=== PATIENT | male | born 1975 | race Caucasian/White ===

== ENCOUNTER 2019-05-01 21:30 | Emergency (ER) | payer BC ==
[~2019-05-01] VITALS: Ht 172.7 cm; Wt 95.5 kg
[~2019-05-01 21:30] MED LIST: HYDR-3730 PO; HYOS0.1283 SL; KETO10TA PO; ONDA4TAB8 PO
[2019-05-01] MEDS ORDERED: ACETAMINOPHEN 500 MG TAB (TYLENOL) PO STA (22:50)
[2019-05-01] MEDS ORDERED: NS IV 1000 ML 1,000 ML IV ONE (22:50)
--- NOTE | 2019-05-01 23:04 | ED Cough/URI ---
General Chief Complaint: Fever-Adult/Adol Stated Complaint: FEVER,BODY ACHES Nursing Triage Note: Pt amb to triage with c/o fever and body aches. Pt reports onset of symptoms approx 3 days ago. Pt reports @ 2019 on this day fever of 103.8. Pt reports to have taken 400mg ibuprofen @ 2030 on this day. Initial pulse rate 123. Sepsis Screen: Possible Severe Sepsis Risk Source: patient Exam Limitations: no limitations (MANNY RUSSELL STUDENT) History of Present Illness Date Seen by Provider: May 01, 2019 Time Seen by Provider: 22:45 Initial Comments Patient presents today with a four day history of fever, headache, body aches and a scratchy throat. He states that nothing makes the symptoms worse or alleviates symptoms. He denies any other symptoms such as cough, chest pain, nausea, vomiting or diarrhea. Patient states that his son may have tonsillitis or strep throat. Timing/Duration: other (Symptoms have been present for the last 4 days) Severity/Quality: no cough Prior Episodes/Possible Cause: no prior episodes Modifying Factors: Improves With Other (nothing improves or worsens the symptoms) Associated Symptoms: fever/chills, muscle aches, sore throat (MANNY RUSSELL STUDENT) Initial Comments Here with fevers and body aches as well as a headache. States that he's not drinking as much as he should but that is mostly because he doesn't feel well. Has had moderate fever that seems to be responding some to ibuprofen. Did take ibuprofen 2 tablets prior to arrival. Has not had any other medication. Timing/Duration: other (Symptoms have been present for the last 4 days) Severity/Quality: no cough Associated Symptoms: chest pain/soreness, cough, fever/chills, muscle aches, shortness of breath, sore throat (CESAR OH MD) Allergies and Home Medications Allergies Coded Allergies: theophylline (Verified Allergy, Unknown, 06/12/16) Home Medications Hydrocodone/Acetaminophen 1 Each Tablet, 1-2 EACH PO Q4H Prescribed by: TYLER PAYNE on 06/12/16 1252 Hyoscyamine Sulfate 0.125 Mg Tab.subl, 1-2 TAB SL Q4H Prescribed by: ANTHONY GONZALEZ on 06/12/16 0625 Ketorolac Tromethamine 10 Mg Tablet, 10 MG PO Q6H Prescribed by: ANTHONY GONZALEZ on 06/12/16624 Ondansetron 4 Mg Tab.rapdis, 4 MG PO Q4H Prescribed by: ANTHONY GONZALEZ on 06/12/16624 Patient Home Medication List Home Medication List Reviewed: Yes (CESAR OH MD) Review of Systems Review of Systems Constitutional: see HPI EENTM: see HPI Respiratory: no symptoms reported Cardiovascular: no symptoms reported Gastrointestinal: no symptoms reported Genitourinary: no symptoms reported Skin: no symptoms reported Psychiatric/Neurological: No Symptoms Reported Hematologic/Lymphatic: No Symptoms Reported Immunological/Allergic: no symptoms reported (MANNY RUSSELL) Constitutional: fever, malaise EENTM: see HPI Respiratory: no symptoms reported Cardiovascular: no symptoms reported Gastrointestinal: no symptoms reported Genitourinary: no symptoms reported (CESAR OH MD) Past Rilyejf-Jojvvf-Hgknqv Hx Past Med/Social Hx: Reviewed Nursing Past Med/Soc Hx (CESAR OH MD) Patient Social History Alcohol Use: Denies Use Recreational Drug Use: No Smoking Status: Never a Smoker 2nd Hand Smoke Exposure: No Recent Foreign Travel: No Contact w/Someone Who Travel: No Recent Infectious Disease Expo: No Recent Hopitalizations: No (MANNY RUSSELL) Immunizations Up To Date Date of Influenza Vaccine: May 05, 2016 (MANNY RUSSELL) Seasonal Allergies Seasonal Allergies: No (MANNY RUSSELL) Past Medical History Surgeries: No Respiratory: Yes Cardiac: Yes ("PRE-HYPERTENISON" --NO MEDICATIONS) Hypertension Neurological: No Reproductive Disorders: No Sexually Transmitted Disease: No HIV/AIDS: No Gastrointestinal: Yes Gastroesophageal Reflux, Gall Bladder Disease Musculoskeletal: No Endocrine: No Loss of Vision: Denies Hearing Impairment: Denies Cancer: No Psychosocial: No Integumentary: No Blood Disorders: No Adverse Reaction/Blood Tranf: No (MANNY RUSSELL STUDENT) Family Medical History Reviewed Nursing Family Hx (CESAR OH MD) Hypertension 19 MOTHER Ulcerative colitis G8 SISTER, Onset:20's - 25 Physical Exam Vital Signs - First Documented 05/01/19 22:32 Temp 38.0 Pulse 123 Resp 17 B/P (MAP) 133/101 (112) Pulse Ox 96 O2 Delivery Room Air (CESAR OH MD) Capillary Refill : Less Than 3 Seconds (MANNY RUSSELL STUDENT) Height: 5'8.00" Weight: 216lbs. 0.0oz. 97.771617pm; 32.00 BMI Method:Stated General Appearance: no apparent distress Eyes: Bilateral Eye PERRL HEENT: PERRL/EOMI, normal ENT inspection, pharynx normal Neck: non-tender, full range of motion, supple, normal inspection Respiratory: chest non-tender, lungs clear, normal breath sounds, no respiratory distress, no accessory muscle use Cardiovascular: normal peripheral pulses, no edema, no gallop, no JVD, no murmur, tachycardia Gastrointestinal: normal bowel sounds, non tender, soft, no organomegaly, no pulsatile mass Extremities: normal range of motion, non-tender, normal inspection, no pedal edema, no calf tenderness, normal capillary refill Neurologic/Psychiatric: no motor/sensory deficits, alert, normal mood/affect, oriented x 3 Skin: normal color, warm/dry (MANNY RUSSELL STUDENT) General Appearance: WD/WN, no apparent distress HEENT: normal ENT inspection, pharyngeal erythema (mild) Neck: non-tender, full range of motion, supple, normal inspection Respiratory: lungs clear, normal breath sounds Cardiovascular: no murmur, tachycardia Gastrointestinal: non tender, soft Neurologic/Psychiatric: alert, oriented x 3 Skin: normal color, warm/dry (CESAR OH MD) Progress/Results/Core Measures Suspected Sepsis Recent Fever Within 48 Hours: Yes Infection Criteria Present: Suspected New Infection New/Unexplained Altered Menta: No Sepsis Screen: Possible Severe Sepsis Risk SIRS Temperature: Pulse: 123 Respiratory Rate: 17 Blood Pressure 133 /101 Mean: 112 (MANNY RUSSELL STUDENT) Results/Orders Lab Results Laboratory Tests Test 05/01/19 23:03 05/01/19 23:42 Range/Units White Blood Count 8.3 4.3-11.0 10^3/uL Red Blood Count 5.60 4.35-5.85 10^6/uL Hemoglobin 15.6 13.3-17.7 G/DL Hematocrit 46 40-54 % Mean Corpuscular Volume 82 80-99 FL Mean Corpuscular Hemoglobin 28 25-34 PG Mean Corpuscular Hemoglobin Concent 34 32-36 G/DL Red Cell Distribution Width 13.0 10.0-14.5 % Platelet Count 160 130-400 10^3/uL Mean Platelet Volume 11.1 H 7.4-10.4 FL Neutrophils (%) (Auto) 71 42-75 % Lymphocytes (%) (Auto) 17 12-44 % Monocytes (%) (Auto) 12 0-12 % Eosinophils (%) (Auto) 0 0-10 % Basophils (%) (Auto) 0 0-10 % Neutrophils # (Auto) 5.8 1.8-7.8 X 10^3 Lymphocytes # (Auto) 1.4 1.0-4.0 X 10^3 Monocytes # (Auto) 1.0 0.0-1.0 X 10^3 Eosinophils # (Auto) 0.0 0.0-0.3 10^3/uL Basophils # (Auto) 0.0 0.0-0.1 10^3/uL Sodium Level 140 135-145 MMOL/L Potassium Level 3.7 3.6-5.0 MMOL/L Chloride Level 105 98-107 MMOL/L Carbon Dioxide Level 24 21-32 MMOL/L Anion Gap 11 5-14 MMOL/L Blood Urea Nitrogen 10 7-18 MG/DL Creatinine 1.25 0.60-1.30 MG/DL Estimat Glomerular Filtration Rate > 60 BUN/Creatinine Ratio 8 Glucose Level 117 H 70-105 MG/DL Calcium Level 9.1 8.5-10.1 MG/DL Corrected Calcium 8.9 8.5-10.1 MG/DL Total Bilirubin 0.5 0.1-1.0 MG/DL Aspartate Amino Transf (AST/SGOT) 30 5-34 U/L Alanine Aminotransferase (ALT/SGPT) 39 0-55 U/L Alkaline Phosphatase 62 40-136 U/L C-Reactive Protein High Sensitivity 1.95 H 0.00-0.50 MG/DL Total Protein 7.0 6.4-8.2 GM/DL Albumin 4.2 3.2-4.5 GM/DL Group A Streptococcus Screen NEGATIVE NEGATIVE (CESAR OH MD) Micro Results Microbiology 05/01/19 Influenza Types A,B Antigen (VIJAY) - Final, Complete (CESAR OH MD) My Orders Orders - CESAR OH MD Cbc With Automated Diff (05/01/19 22:50) Comprehensive Metabolic Panel (05/01/19 22:50) Hs C Reactive Protein (05/01/19 22:50) Influenza A And B Antigens (05/01/19 22:50) Ed Iv/Invasive Line Start (05/01/19 22:50) Ns Iv 1000 Ml (Sodium Chloride 0.9%) (05/01/19 22:50) Acetaminophen Tablet (Tylenol Tablet) (05/01/19 22:50) Chest Pa/Lat (2 View) (05/01/19 22:50) Rapid Strep A Screen (05/01/19 22:58) (CESAR OH MD) Medications Given in ED Current Medications Medications Dose Ordered Sig/Jackelyn Route Start Time Stop Time Status Last Admin Dose Admin Sodium Chloride 1,000 ml @ 0 mls/hr Q0M ONCE IV 05/01/19 22:50 05/01/19 22:54 DC 05/01/19 23:00 0 MLS/HR (CESAR OH MD) Vital Signs/I&O 05/01/19 05/01/19 22:32 23:00 Temp 38.0 38.0 Pulse 123 Resp 17 B/P (MAP) 133/101 (112) Pulse Ox 96 O2 Delivery Room Air (CESAR OH MD) Vital Signs/I&O Capillary Refill : Less Than 3 Seconds (MANNY RUSSELL PA STUDENT) Blood Pressure Mean: 112 Progress Note : Progress Note I have seen and evaluated the patient and agree with above except as indicated. Have directed the plan of care. Due to tachycardia we will initiate IV fluids and check basic labs, influenza and strep. Due to persistence of symptoms over the last 4 days, we will go ahead and get x-ray of the chest. Monitor patient. 0 105: Strep is negative. No acute findings otherwise. Patient feeling better. Discharged home with return precautions. Patient verbalize understanding instructions and agreement with plan. (CESAR OH MD) Diagnostic Imaging Diagonstic Imaging: Xray Plain Films/CT/US/NM/MRI: chest Comments No acute findings on two-view chest x-ray. Reviewed: Reviewed by Me (CESAR OH MD) Departure Impression Primary Impression: Fever Qualified Codes: R50.9 - Fever, unspecified Additional Impression: Upper respiratory infection Qualified Codes: J06.9 - Acute upper respiratory infection, unspecified Disposition: 01 HOME, SELF-CARE Condition: Improved Departure-Patient Inst. Decision time for Depature: 01:09 (CESAR OH MD) Referrals: GUADALUPE OWUSU MD (PCP/Family) Primary Care Physician Patient Instructions: Fever, Adult (DC), Viral Upper Respiratory Infection, Adult (DC) Add. Discharge Instructions: All discharge instructions reviewed with patient and/or family. Voiced understanding. Drink plenty of fluids. You should rest today and not return to work until tomorrow if fever free. You may take Tylenol/acetaminophen 1000 mg every 6-8 hours as needed for fever or pain. You may take ibuprofen 400 mg every 6-8 hours as needed for fever or pain. Follow-up with your Dr. in a few days for recheck if not improved. Return for worse pain, fever, vomiting, weakness, breathing problems or other concerns as needed. Copy Copies To 1: GUADALUPE OWUSU MD, BRODIE PA STUDENT May 01, 2019 23:04 CESAR OH MD May 01, 2019 23:44
[2019-05-01 23:09] LABS: BASOPHILS % (AUTO) 0 % (0-10); EOSINOPHILS % (AUTO) 0 % (0-10); HEMATOCRIT 46 % (40-54); HEMOGLOBIN 15.6 G/DL (13.3-17.7); LYMPHOCYTES # (AUTO) 1.4 X 10^3 (1.0-4.0); LYMPHOCYTES % (AUTO) 17 % (12-44); MEAN CORPUSCULAR HEMOGLOBIN 28 PG (25-34); MEAN CORPUSCULAR HGB CONC 34 G/DL (32-36); MEAN CORPUSCULAR VOLUME 82 FL (80-99); MEAN PLATELET VOLUME 11.1 FL (7.4-10.4); MONOCYTES % (AUTO) 12 % (0-12); NEUTROPHILS # (AUTO) 5.8 X 10^3 (1.8-7.8); NEUTROPHILS % (AUTO) 71 % (42-75); PLATELET COUNT 160 10^3/uL (130-400); WHITE BLOOD COUNT 8.3 10^3/uL (4.3-11.0)
[2019-05-01 23:28] LABS: ALANINE AMINOTRANSFERASE 39 U/L (0-55); ALBUMIN 4.2 GM/DL (3.2-4.5); ALKALINE PHOSPHATASE 62 U/L (40-136); BILIRUBIN,TOTAL 0.5 MG/DL (0.1-1.0); BUN/CREATININE RATIO 8; CALCIUM 9.1 MG/DL (8.5-10.1); CARBON DIOXIDE 24 MMOL/L (21-32); CHLORIDE 105 MMOL/L (98-107); CREATININE SERUM 1.25 MG/DL (0.60-1.30); GFR ESTIMATED > 60; GLUCOSE 117 MG/DL (70-105); POTASSIUM 3.7 MMOL/L (3.6-5.0); SODIUM 140 MMOL/L (135-145)
[2019-05-02 00:15] VITALS: BP 133/93
--- NOTE | 2019-05-02 06:35 | Diagnostic Imaging Report ---
INDICATION: Fever. PA and lateral views were obtained. FINDINGS: The heart size, mediastinal configuration, and pulmonary vascularity are within normal limits. There is no pleural effusion, pneumothorax, or pneumonia. The osseous structures are unremarkable. IMPRESSION: No acute cardiopulmonary abnormality. Dictated by: Dictated on workstation # [id number]
== END 2019-05-02 01:20 | disposition home or self-care (01) ==
LOC: EDUNIT# 21:30 → ER 21:32
DX: J06.9 Acute upper respiratory infection, unspecified (principal); I10 Essential (primary) hypertension; K21.9 Gastro-esophageal reflux disease without esophagitis; Z88.8 Allergy status to other drugs, medicaments and biological substances; Z82.49 Family history of ischemic heart disease and other diseases of the circulatory system
CPT/HCPCS: 36415; 71046; 80053; 85025; 86141; 87430; 87804

== ENCOUNTER 2019-05-12 16:47 | Emergency (ER) | payer BC ==
--- NOTE | 2019-05-12 17:12 | ED GU-Male ---
General Chief Complaint: Male Reproductive Stated Complaint: SWELLING IN GROIN Nursing Triage Note: THE PT IS AMBULATORY TO THE ROOM WITHOUT DIFFICULTY. NO DISTRESS IS SEEN ON ARRIVAL. LOC IS NORMAL FOR THE PT. THE PT IS C/O RIGHT TESTICAL SWELLING TODAY. NO REPORT IF RECENT INJURY. Source: patient Exam Limitations: no limitations (MANNY RUSSELL STUDENT) History of Present Illness Date Seen by Provider: May 12, 2019 Time Seen by Provider: 16:55 Initial Comments Patient presents to the ED today with a 12 hour history of a painful, swollen left testicle. The patient stated he was helping to set up an event last night when he began to feel a pain in his lower abdomen and in his scrotum, as if he had received a direct blow to the scrotum. He stated that even though he had the pain, his scrotum appeared to be fine before he went to bed. This morning, he was working the event and noticed that his left testicle was twice the size as his right testicle, and was experiencing the same pain. The patient states that standing helps alleviate some of the pain, and any excessive activity or sitting/lying down makes the pain worse. Timing/Duration: yesterday Severity/Quality: moderate Location: scrotal Radiation: suprapubic Activities at Onset: other (Working a social event) Prior Genitourinary Problems: none Sexual [place] History: less than 2 months ago, single partner Modifying Factors: Improves With Other (standing makes it better) Associated Symptoms: abdominal pain, swelling (MANNY RUSSELL STUDENT) Initial Comments Here with report of scrotal swelling that started this afternoon and has persisted. Better when standing and worse when lying back. Denies any recent injury. He was working on event today and doing lifting. Never had hernia or other problems. Denies dysuria or diarrhea. Did have some lower abdominal pain especially on the left starting yesterday evening. Timing/Duration: yesterday Severity/Quality: moderate Location: scrotal Radiation: suprapubic Sexual [place] History: less than 2 months ago, single partner Associated Symptoms: abdominal pain, swelling (CESAR OH MD) Allergies and Home Medications Allergies Coded Allergies: theophylline (Verified Allergy, Unknown, 06/12/16) Home Medications Hydrocodone/Acetaminophen 1 Each Tablet, 1-2 EACH PO Q4H Prescribed by: TYLER PAYNE on 06/12/16 1252 Hyoscyamine Sulfate 0.125 Mg Tab.subl, 1-2 TAB SL Q4H Prescribed by: ANTHONY GONZALEZ on 06/12/16624 Ketorolac Tromethamine 10 Mg Tablet, 10 MG PO Q6H Prescribed by: ANTHONY GONZALEZ on 06/12/16624 Ondansetron 4 Mg Tab.rapdis, 4 MG PO Q4H Prescribed by: ANTHONY GONZALEZ on 06/12/16624 Patient Home Medication List Home Medication List Reviewed: Yes (CESAR OH MD) Review of Systems Review of Systems Constitutional: no symptoms reported EENTM: no symptoms reported Respiratory: no symptoms reported Cardiovascular: no symptoms reported Gastrointestinal: no symptoms reported Genitourinary: see HPI Musculoskeletal: no symptoms reported Skin: no symptoms reported Psychiatric/Neurological: No Symptoms Reported Endocrine: No Symptoms Reported (MANNY RUSSELL) All Other Systemes Reviewed Negative Unless Noted: Yes (CESAR OH MD) Past Haancyo-Gqubpw-Famjct Hx Past Med/Social Hx: Reviewed Nursing Past Med/Soc Hx (CESAR OH MD) Patient Social History 2nd Hand Smoke Exposure: No Recent Foreign Travel: No Contact w/Someone Who Travel: No Recent Infectious Disease Expo: No Recent Hopitalizations: No Physical Abuse: No Sexual Abuse: No Mistreated: No Fear: No (MANNY RUSSELL) Immunizations Up To Date Date of Influenza Vaccine: May 05, 2016 (MANNY RUSSELL) Seasonal Allergies Seasonal Allergies: No (MANNY RUSSELL) Past Medical History Surgeries: No Respiratory: Yes Cardiac: Yes ("PRE-HYPERTENISON" --NO MEDICATIONS) Hypertension Neurological: No Reproductive Disorders: No Sexually Transmitted Disease: No HIV/AIDS: No Gastrointestinal: Yes Gastroesophageal Reflux, Gall Bladder Disease Musculoskeletal: No Endocrine: No Loss of Vision: Denies Hearing Impairment: Denies Cancer: No Psychosocial: No Integumentary: No Blood Disorders: No Adverse Reaction/Blood Tranf: No (MANNY RUSSELL) Family Medical History Reviewed Nursing Family Hx (CESAR OH MD) Hypertension 19 MOTHER Ulcerative colitis G8 SISTER, Onset:20's - 25 Physical Exam Vital Signs Vital Signs - First Documented 05/12/19 16:54 Temp 37.0 Pulse 112 Resp 16 B/P (MAP) 140/110 (120) (CESAR OH MD) Vital Signs Capillary Refill : Less Than 3 Seconds (MANNY RUSSELL STUDENT) Height, Weight, BMI Height: 5'8.00" Weight: 216lbs. 0.0oz. 97.806440it; 32.00 BMI Method:Stated General Appearance: no apparent distress HEENT: PERRL/EOMI, pharynx normal Cardiovascular: normal peripheral pulses, regular rate, rhythm, no edema, no gallop, no JVD, no murmur Respiratory: chest non-tender, lungs clear, normal breath sounds, no respiratory distress, no accessory muscle use Gastrointestinal: normal bowel sounds, non tender, soft, no organomegaly, no pulsatile mass Male: testicular tenderness Back: normal inspection, no CVA tenderness, no vertebral tenderness Extremities: normal inspection Neurologic/Psychiatric: alert, normal mood/affect, oriented x 3 Skin: normal color, warm/dry Lymphatic: no adenopathy (MANNY RUSSELL STUDENT) General Appearance: WD/WN, no apparent distress Cardiovascular: regular rate, rhythm, no murmur Respiratory: lungs clear, normal breath sounds Gastrointestinal: non tender, soft Male: No erythema, No inguinal tenderness; testicular tenderness Back: normal inspection, no CVA tenderness, no vertebral tenderness Neurologic/Psychiatric: alert, oriented x 3 Skin: normal color, warm/dry (CESAR OH MD) Progress/Results/Core Measures Suspected Sepsis Recent Fever Within 48 Hours: No Infection Criteria Present: None New/Unexplained Altered Menta: No Sepsis Screen: No Definite Risk SIRS Temperature: Pulse: 112 Respiratory Rate: 16 Blood Pressure 140 /110 Mean: 120 (MANNY RUSSELL STUDENT) Results/Orders Vital Signs/I&O 05/12/19 16:54 Temp 37.0 Pulse 112 Resp 16 B/P (MAP) 140/110 (120) (CESAR OH MD) Vital Signs/I&O Capillary Refill : Less Than 3 Seconds (MANNY RUSSELL STUDENT) Blood Pressure Mean: 120 Progress Note : Progress Note I had seen and evaluated the patient and agree with above except as indicated. I have directed the plan of care. Patient is here with testicular swelling. We do not have ultrasound capability or urology capability today. This was discussed with the patient. I do believe he needs ultrasound for evaluation. He was luis mahoney to check on his insurance to decide which hospital to send to. 1750: Patient reports that he would like to go to [facility] and I have made contact with them. I discussed the case with Dr. Saravia in the emergency department and he agrees to accept the patient in transfer. Patient will go by POV. Transfer paperwork given. Discharged with report to go directly to [place] for evaluation. (CESAR OH MD) Departure Impression Primary Impression: Scrotal swelling Disposition: XFER SHT-TRM HOSP Condition: Stable Transfer Transfer Reason: Diversion (ultrasound and urology unavailable) Time Spoke to Accepting Phy: 17:55 Transfer Facility: [place], [place], Dr. Saravia accepting Method of Transfer: Private Vehicle (CESAR OH MD) Departure-Patient Inst. Decision time for Depature: 17:59 (CESAR OH MD) Referrals: GUADALUPE OWUSU MD (PCP/Family) Primary Care Physician Add. Discharge Instructions: All discharge instructions reviewed with patient and/or family. Voiced understanding. Go to the [facility] emergency department internet marketing manager and the paperwork that was given to you for return and. You will be evaluated there. MANNY RUSSELL STUDENT May 12, 2019 17:12 CESAR OH MD May 12, 2019 17:59
[2019-05-12 18:13] VITALS: BP 140/95
== END 2019-05-12 18:15 | disposition short-term general hospital (02) ==
LOC: EDUNIT# 16:47 → ER 16:48
DX: N50.89 Other specified disorders of the male genital organs (principal); I10 Essential (primary) hypertension; K21.9 Gastro-esophageal reflux disease without esophagitis; Z88.8 Allergy status to other drugs, medicaments and biological substances; Z82.49 Family history of ischemic heart disease and other diseases of the circulatory system
CPT/HCPCS: 99281

== ENCOUNTER → 2023-05-11 | Outpatient (CLI) | payer BC ==
[~2023-05-11] VITALS: Ht 180.3 cm; Wt 105.9 kg
[~2023-05-11] MED LIST changes: +LISI20TA26 PO
== END | disposition home or self-care (01) ==
LOC: PREOP 06:13
PROVIDERS: ATTEND Internal Medicine
DX: Z01.818 Encounter for other preprocedural examination (principal)

== ENCOUNTER 2023-05-20 07:45 | Day surgery (SDC) | payer BC ==
--- NOTE | 2023-05-09 08:00 | HISTORY AND PHYSICAL ---
COLONOSCOPY HISTORY AND PHYSICAL HISTORY OF PRESENT ILLNESS: The patient is a 48-year-old white male seen for yearly wellness evaluation on 05/04/2023. He has not previously accomplished screening colonoscopy. He is deemed to be of average risk because he is not aware of any family history for colon cancer or colon polyps. He reports that generally has been feeling well. He has been doing some assistance training. He did report pain at the base of his right trapezius that has been bothering him over the past 2 weeks. It is worse when he turns his head towards the right. Initially, he was having some radicular pain radiating down into the right arm, but this has all subsided. He denies any associated weakness of the arm or legs. He has tried heating, ice, ibuprofen. Heating pad helps a little, but neither Tylenol nor ibuprofen help. He voiced no other complaints. PAST MEDICAL HISTORY: Significant for hypertension and reflux. He takes intermittent vapp-ykn-aorivse omeprazole for. FAMILY HISTORY: Updated. Father has diabetes and hypertension, living in his late 70s with no history of vascular disease. He has had one uncle with melanoma. No other malignancies that he is aware of in the family. PAST SURGICAL HISTORY: Significant for laparoscopic cholecystectomy performed in 05/2016. SOCIAL HISTORY: He is employed. No past smoking history. No significant alcohol consumption history. PHYSICAL EXAMINATION: GENERAL: Reveals a white male, appeared to be in no acute distress. VITAL SIGNS: Weight was up 6.4 pounds from 10 months ago at 233, blood pressure 116/88, BMI 35. HEENT: Unremarkable. Sclerae nonicteric. CHEST: Clear to auscultation. CARDIOVASCULAR: Reveals regular rate and rhythm without murmur, S3, or S4. ABDOMEN: Soft, supple without mass, organomegaly, or tenderness. EXTREMITIES: Revealed no cyanosis, clubbing or edema. SKIN: Evaluation reveals no suspicious nevi. At the base of the right trapezius, he has significant area of pain to palpation with a knot compatible with myofascial pain and trigger points that reproduces his symptoms. ASSESSMENT AND PLAN: 1. Myofascial right trapezius pain, failure of conservative management. He was given 20 mg of triamcinolone, 1 mL of bupivacaine injection, after thoroughly cleaning the area with isopropyl alcohol. Expectations were discussed. 2. Stable wellness evaluation. Underwent blood testing revealing an unremarkable chemistry panel except for chronic mild elevation in bilirubin levels, compatible with Gilbert's disease. Cholesterol panel was reasonable except for low HDL, which was 36, LDL was 86, total cholesterol 146 and triglyceride level of 122. Did discuss the importance of portion control to try to effect weight loss considering overweight status. He was given a flu shot today, and I will see him back in 6 months to monitor progress with a colonoscopy to follow up in several weeks. Job ID: [id number] DocumentID: [id number] Dictated Date: 05/04/2023 16:45:36 Msws Date: 05/04/2023 17:19:00 Dictated By: GUADALUPE OWUSU MD MTDD
[~2023-05-20] VITALS: Ht 180.3 cm; Wt 105.9 kg
[2023-05-20] MEDS ORDERED: LACTATED RINGERS 1,000 ML 1,000 ML IV STA (07:51)
[2023-05-20 08:13] VITALS: BP 127/95
--- NOTE | 2023-05-20 08:21 | Pre-Op Note & Conscious Sedat ---
Pre-Operative Progress Note Date H&P Reviewed: May 20, 2023 Time H&P Reviewed: 08:20 History & Physical: H&P Reviewed, Patient Examed, No changes noted Pre-Op Diagnosis: screening Moderate Sedation PreProcedure ASA Score 2 Airway Lungs Heart ASA score ASA 1: a normal healthy patient ASA 2: a patient with a mild systemic disease (mid diabetes, controlled hypertension, obesity ASA 3: a patient with a severe systemic disease that limits activity (angina, COPD, prior Myocardial infarction) ASA 4: a patient with an incapacitating disease that is a constant threat to life (CHF, renal failure) ASA 5: a moribund patient not expected to survive 24 hrs. (ruptured aneurysm) ASA 6: a declared brain- patient whose organs are being harvested. For emergent operations, add the letter E after the classification Mallampati Classification Grade 2 Sedation Plan Analgesia, Amnesia, Plan communicated to team members, Discussed options with patient/fam, Discussed risks with patient/fam The patient is an appropriate candidate to undergo the planned procedure, sedation, and anesthesia. The patient immediately re-assessed prior to indication. GUADALUPE OWUSU MD May 20, 2023 08:21
[2023-05-20] MEDS ORDERED: MIDAZOLAM INJ 2 MG/2 ML VIAL ONE (08:50)
[2023-05-20 09:10] VITALS: BP 123/77
--- NOTE | 2023-05-20 09:12 | Progress Note-Post Operative ---
Post-Procedure Note Physician (s)/[employer] Hand (s) Physician GUADALUPE OWUSU MD Pre-Procedure Diagnosis Pre-Procedure Diagnosis: screening Post-Procedure Diagnosis Post-operative diagnosis: Prior to undergoing colonoscopy digital rectal evaluation was performed. Anal suture tone was normal and the perianal reflexes intact. The prostate is mildly enlarged and a nodular on digital inspection. There is noted on digital inspection anal canal or distal rectal vault. The colonoscope was then inserted into the rectum and under direct visualization advanced to the cecum. The cecum was identified by the indication of the ileocecal valve and cecal strap. Photographic documentation was obtained. Careful inspection was made as the colonoscope was withdrawn. Quality the prep was good. Findings there are no evidence for internal or external hemorrhoids. The rectum sigmoid colon descending colon splenic flexure transverse colon hepatic flexure ascending colon and cecum were unremarkable with no evidence for diverticular disease or neoplasia. A/P 1. Normal colonoscopy to the cecum under good prep condition. Would recommend consideration for repeat screening colonoscopy in 10 years. Digital valuation of the prostate was compatible with mild BPH. GUADALUPE OWUSU MD May 20, 2023 09:12
[2023-05-20 09:15] VITALS: BP 126/77
[2023-05-20 09:45] VITALS: BP 129/81
[2023-05-20 10:03] VITALS: BP 129/81
--- NOTE | 2023-05-20 10:17 | Anesthesia-General Post-Op ---
MAC Patient Condition Mental Status/LOC: Same as Preop Cardiovascular: Satisfactory Nausea/Vomiting: Absent Respiratory: Satisfactory Pain: Controlled Complications: Absent Post Op Complications Complications None Follow Up Care/Instructions Patient Instructions None needed. Anesthesiology Discharge Order Discharge Order Patient is doing well, no complaints, stable vital signs, no apparent adverse anesthesia problems. No complications reported per nursing. HEATHER KILGORE CRNA May 20, 2023 10:17
== END 2023-05-20 10:03 | disposition home or self-care (01) ==
LOC: ENDO 07:45
PROVIDERS: ATTEND Internal Medicine
DX: Z12.11 Encounter for screening for malignant neoplasm of colon (principal); N40.0 Benign prostatic hyperplasia without lower urinary tract symptoms; M79.18 Myalgia, other site; Z87.891 Personal history of nicotine dependence